=== PATIENT | male | born 1990 | race Caucasian/White ===

== ENCOUNTER 2019-01-23 09:31 | Emergency (ER) | payer MEDICAID ==
[~2019-01-23] VITALS: Ht 167.6 cm; Wt 60.0 kg
[2019-01-23] MEDS ORDERED: TRAZ-251 PO (09:53)
[2019-01-23] MEDS ORDERED: HAL5 GT (09:53)
[2019-01-23] MEDS ORDERED: HYDR50CA5 PO (09:53)
[2019-01-23] MEDS ORDERED: LORAZEPAM 1MG TABLET PO ONE (10:15)
[2019-01-23] MEDS ORDERED: OLANZAPINE 5MG TABLET ODT PO ONE (10:15)
[2019-01-23] MEDS ORDERED: LORAZEPAM 2MG/ML CPJ IM ONE (10:45)
[2019-01-23] MEDS ORDERED: OLANZAPINE 10 MG/VIAL IM ONE (10:45)
[2019-01-23 10:49] LABS: HEMATOCRIT. 42.9 % (42.0-52.0); HEMOGLOBIN. 14.3 g/dL (14.0-18.0); MEAN CORPUSCULAR HEMOGLOBIN 30.6 pg (28.0-32.0); MEAN CORPUSCULAR VOLUME 92.1 fL (80.0-94.0); MEAN PLATELET VOLUME 7.8 fl (7.4-10.4); PLATELET 225 x1000/uL (130-400); RED BLOOD CELL COUNT 4.66 mill/uL (4.7-6.1); RED CELL DISTRIBUTION WIDTH 13.9 % (11.6-14.6)
[2019-01-23 10:54] LABS: CHLORIDE 105 mEq/L (98-107)
[2019-01-23 10:58] LABS: ETHANOL BLOOD < 10 mg/dL
[2019-01-23 11:10] LABS: PLATELET ESTIMATE NORMAL
[2019-01-23 11:58] LABS: CLARITY URINE CLEAR (CLEAR); COLOR URINE YELLOW (YELLOW); KETONES URINE TRACE (NEGATIVE); LEUKOCYTE ESTERASE URINE TRACE (NEGATIVE); NITRITE URINE NEGATIVE (NEGATIVE); OCCULT BLOOD URINE NEGATIVE (NEGATIVE); PH URINE 6.5 (4.5-8.0); PROTEIN URINE NEGATIVE (NEGATIVE); UROBILINOGEN URINE 0.2 E.U./dL (0.2-1.0)
[2019-01-23 12:13] LABS: *AMPHETAMINES SCREEN URINE NEGATIVE (NEGATIVE); *BARBITURATES SCREEN URINE NEGATIVE (NEGATIVE); *BENZODIAZEPINES SCREEN URINE NEGATIVE (NEGATIVE)
[2019-01-23 12:14] LABS: *COCAINE SCREEN URINE NEGATIVE (NEGATIVE); CANNABINOID URINE SCREEN PRESUMTIVE POSITIVE (NEGATIVE); METHADONE URINE SCREEN NEGATIVE (NEGATIVE); OPIATES URINE SCREEN NEGATIVE (NEGATIVE); PHENCYCLIDINE URINE SCREEN NEGATIVE (NEGATIVE)
[2019-01-23] MEDS ORDERED: SODIUM CHLORIDE 0.9% 1,000 ML IV ONE (17:29)
[2019-01-24 15:00] VITALS: BP 110/70
== END 2019-01-24 15:37 | disposition left against medical advice (07) ==
LOC: ER 09:31
DX: R45.851 Suicidal ideations (principal); F20.9 Schizophrenia, unspecified; F12.10 Cannabis abuse, uncomplicated; F19.10 Other psychoactive substance abuse, uncomplicated; Z98.890 Other specified postprocedural states
CPT/HCPCS: 36415; 80053; 80305; 80307; 80320; 80329; 81003; 85025; 96372; 99285; J2060; J3490; J7030; G0480

== ENCOUNTER 2019-01-24 17:34 | Emergency (ER) | payer MEDICAID ==
[~2019-01-24] VITALS: Ht 167.6 cm; Wt 73.0 kg
[~2019-01-24 17:34] MED LIST: HAL5 GT; HYDR50CA5 PO; TRAZ-251 PO
[2019-01-24 19:38] LABS: CHLORIDE 106 mEq/L (98-107)
[2019-01-24 19:46] LABS: BASOPHILS % 0.4 % (0.0-2.0); EOSINOPHILS % 0.8 % (0.0-5.0); HEMATOCRIT. 41.9 % (42.0-52.0); HEMOGLOBIN. 14.1 g/dL (14.0-18.0); LYMPHOCYTES % 17.7 % (20.0-50.0); MEAN CORPUSCULAR HEMOGLOBIN 30.8 pg (28.0-32.0); MEAN CORPUSCULAR VOLUME 91.7 fL (80.0-94.0); MEAN PLATELET VOLUME 7.5 fl (7.4-10.4); MONOCYTES % 5.5 % (2.0-8.0); NEUTROPHILS % 75.6 % (40.0-76.0); PLATELET 268 x1000/uL (130-400); RED BLOOD CELL COUNT 4.57 mill/uL (4.7-6.1); RED CELL DISTRIBUTION WIDTH 13.8 % (11.6-14.6)
[2019-01-24 20:17] LABS: CHLORIDE 105 mEq/L (98-107)
[2019-01-24 20:21] LABS: ETHANOL BLOOD < 10 mg/dL
[2019-01-24 20:25] LABS: CREATINE KINASE 195 IU/L (39-308)
[2019-01-24 22:57] LABS: CLARITY URINE CLEAR (CLEAR); COLOR URINE YELLOW (YELLOW); KETONES URINE NEGATIVE (NEGATIVE); LEUKOCYTE ESTERASE URINE TRACE (NEGATIVE); NITRITE URINE NEGATIVE (NEGATIVE); OCCULT BLOOD URINE NEGATIVE (NEGATIVE); PROTEIN URINE NEGATIVE (NEGATIVE); SPECIFIC GRAVITY URINE 1.023 (1.005-1.030); UROBILINOGEN URINE 0.2 E.U./dL (0.2-1.0)
[2019-01-24 23:09] LABS: *COCAINE SCREEN URINE NEGATIVE (NEGATIVE); CANNABINOID URINE SCREEN PRESUMTIVE POSITIVE (NEGATIVE); METHADONE URINE SCREEN NEGATIVE (NEGATIVE); OPIATES URINE SCREEN NEGATIVE (NEGATIVE); PHENCYCLIDINE URINE SCREEN NEGATIVE (NEGATIVE)
[2019-01-24 23:10] LABS: *AMPHETAMINES SCREEN URINE NEGATIVE (NEGATIVE); *BARBITURATES SCREEN URINE NEGATIVE (NEGATIVE); *BENZODIAZEPINES SCREEN URINE NEGATIVE (NEGATIVE)
[2019-01-25 12:15] VITALS: BP 127/76
== END 2019-01-25 12:31 ==
LOC: ER 17:34
DX: F20.9 Schizophrenia, unspecified (principal); F17.200 Nicotine dependence, unspecified, uncomplicated
CPT/HCPCS: 36415; 80048; 80305; 80307; 80320; 80329; 81003; 82140; 82550; 84443; 93005; 99285; G0480